=== PATIENT | male | born 1985 | race Caucasian/White ===

== ENCOUNTER 2016-12-08 15:42 | Emergency (ER) | payer OTHER ==
[~2016-12-08 15:42] MED LIST: AUGMENTIN 875-1 EAC2 PO; CARBAMAZEPINE400 M1 PO; FLEXERIL10 MG PO
[2016-12-08] MEDS ORDERED: CLARITIN10 M6 PO (16:01)
[2016-12-08] MEDS ORDERED: BENADRYL25 M3 PO (16:02)
[2016-12-08 16:33] LABS: URINE BILIRUBIN NEGATIVE (NEG); URINE BLOOD MODERATE (NEG); URINE GLUCOSE (UA) NEGATIVE (NEG); URINE KETONE NEGATIVE (NEG); URINE LEUKOCYTE ESTERASE POSITIVE (NEG); URINE NITRITE NEGATIVE (NEG); URINE PROTEIN MODERATE (NEG); URINE SPECIFIC GRAVITY 1.015 (1.003-1.030)
[2016-12-08 16:35] LABS: URINE APPEARANCE HAZY; URINE COLOR YELLOW
[2016-12-08 16:40] LABS: URINE BACTERIA 1+; URINE RBC 0-3 /[HPF] (0-5); URINE WBC 15-20 /[HPF] (0-5)
[2016-12-08 16:41] LABS: URINE MUCUS 1+
[2016-12-08] MEDS ORDERED: CIPRO500 M2 PO (17:17)
== END 2016-12-08 17:31 ==
LOC: EDMED 15:42
PROVIDERS: Physician Assistant
PROC: 4A0D7LZ Measurement of Urinary Volume, Via Natural or Artificial Opening (ICD-10-PCS; principal; 2016-12-08)
DX: N39.0 Urinary tract infection, site not specified (principal)